=== PATIENT | male | born 1965 | race Caucasian/White ===

== ENCOUNTER 2020-11-15 10:33 | Emergency (ER) | payer OTHER ==
--- NOTE | 2020-11-15 11:37 | EDM.PDOC ---
ED HPI GENERAL MEDICAL PROBLEM - General Chief Complaint: Upper Extremity Injury/Pain Stated Complaint: LACERATION TO R HAND Time Seen by Provider: 11/15/20 11:00 Source of Information: Reports: Patient History Limitations: Reports: No Limitations - History of Present Illness INITIAL COMMENTS - FREE TEXT/NARRATIVE: 55 YO WM PRESENTS TO ER WITH A 5CM LACERATION TO DORSUM OF RIGHT HAND FROM BR[place]EN [place]. PT REPORTS HE WAS REPLACING A WINDOW IN HIS TRACTOR WHEN IT BROKE CAUSING LACERATION. PT DENIES ANY MOTOR OR SENSORY WEAKNESS OR DYSFUNCTION. PT DENIES ANY OTHER INJURIES. BLEEDING WELL CONTROLLED UPON ER EXAMINATION. Onset: Today Location: Reports: Upper Extremity, Right Severity: Mild Improves with: Reports: Rest Worsens with: Reports: Movement Associated Symptoms: Reports: No Other Symptoms - Related Data Allergies Allergy/AdvReac Type Severity Reaction Status Date / Time No Known Allergies Allergy Verified 09/21/17 09:48 Review of Systems - Review of Systems Review Of Systems: See Below Constitutional: Reports: No Symptoms Eyes: Reports: No Symptoms Ears: Reports: No Symptoms Nose: Reports: No Symptoms Mouth/Throat: Reports: No Symptoms Respiratory: Reports: No Symptoms Cardiovascular: Reports: No Symptoms GI/Abdominal: Reports: No Symptoms Genitourinary: Reports: No Symptoms Musculoskeletal: Reports: No Symptoms Skin: Reports: Wound (5CM LACERATION TO DORSUM OF RIGHT HAND) Neurological: Reports: No Symptoms Psychiatric: Reports: No Symptoms ED EXAM, GENERAL - Physical Exam Exam: See Below Exam Limited By: No Limitations General Appearance: Alert, WD/WN, No Apparent Distress Head: Atraumatic, Normocephalic Neck: Normal Inspection, Supple, Non-Tender, Full Range of Motion Respiratory/Chest: No Respiratory Distress, Lungs Clear, Normal Breath Sounds, No Accessory Muscle Use, Chest Non-Tender Cardiovascular: Normal Peripheral Pulses, Regular Rate, Rhythm, No Edema, No Gallop, No JVD, No Murmur, No Rub Neurological: Alert, Oriented, CN II-XII Intact, Normal Cognition, Normal Gait, Normal Reflexes, No Motor/Sensory Deficits Psychiatric: Normal Affect, Normal Mood Skin Exam: Wound/Incision (5CM LACERATION TO DORSUM OF RIGHT HAND) ED TRAUMA EXTREMITY PROCEDURES - Laceration/Wound Repair Right Hand Lac/Wound Length In cm: 5 Appearance: Superficial Local Anesthesia - Lidocaine (Xylocaine): 1% Plain Local Anesthetic Volume: 5cc Skin Prep: Chlorhexidine (Hibiciens), Saline Exploration/Debridement/Repair: Wound Explored, In a Bloodless Field, Explored to Base Closed With: Sutures Suture Size: 4-0 # of Sutures: 5 Sterile Dressing Applied: Provider Tetanus Status Addressed: Yes Complications: No Course - Radiology Interpretation Free Text/Narrative:: RIGHT HAND- NO FOREIGN BODY OR FRACTURE IDENTIFIED Departure - Departure Time of Disposition: 12:13 Disposition: Home, Self-Care 01 Condition: Good Clinical Impression: Laceration of right hand Qualifiers: Encounter type: initial encounter Foreign body presence: without foreign body Qualified Code(s): S61.411A - Laceration without foreign body of right hand, ini tial encounter - Discharge Information Instructions: Laceration Care, Adult Referrals: Vielka Hidalgo PA-C [Primary Care Provider] - Forms: ED Department Discharge Additional Instructions: 1. DISCHARGE HOME 2. WOUND CARE INSTRUCTIONS GIVEN 3. SUTURE REMOVAL IN 10-14 DAYS 4. FOLLOW UP WITH PCP FOR FURTHER EVALUATION NEEDED 5. RETURN TO ER FOR WORSENING SYMPTOMS - Assessment/Plan Assessment:: 1. 5CM LACERATION TO DORSUM OF RIGHT HAND Plan: 1. DISCHARGE HOME 2. WOUND CARE INSTRUCTIONS GIVEN 3. SUTURE REMOVAL IN 10-14 DAYS 4. FOLLOW UP WITH PCP FOR FURTHER EVALUATION NEEDED 5. RETURN TO ER FOR WORSENING SYMPTOMS
--- NOTE | 2020-11-15 11:52 | CR ---
[id number] RAD/RAD Hand Right 3V EXAM: 3 VIEWS RIGHT HAND. INDICATION: LACERATION. COMPARISON: None. DISCUSSION: No fracture, dislocation or other acute osseous abnormality. No radiodense foreign bodies are identified. IMPRESSION: 1. No acute osseous abnormalities. Cory Saleh DO 11/15/20 1151 Thank you for allowing us to participate in the care of your patient.
[2020-11-15] MEDS ORDERED: Lidocaine 1% 20 ML MDV INJECT ONE (12:00)
== END 2020-11-15 12:25 | disposition home or self-care (01) ==
LOC: KA.ED 10:33
DX: S61.411A Laceration without foreign body of right hand, initial encounter (principal); W25.XXXA Contact with sharp glass, initial encounter
CPT/HCPCS: 12002; 73130-RT; 99283; 99283-25